=== PATIENT | female | born 1955 | race Caucasian/White ===

== ENCOUNTER → 2016-08-25 | Outpatient (CLI) | payer BC ==
--- NOTE | 2016-08-26 14:33 | DI ---
CT SCAN OF THE NECK WITHOUT IV CONTRAST, 08/25/2016 12:56 PM : Clinical History: Biopsy proven thyroid cancer. Previous Exam: None at this facility. Scans are obtained from below the sternal notch to the petrous pyramids without IV contrast. Sagittal and coronal images are generated. The cervical vertebral bodies are of normal height and size. There is chronic narrowing of the C4-5 a nd C5-6 disc spaces. The remaining cervical disc spaces are of normal height. The unopacified views o f the carotid and vertebral arteries are normal. There are no soft tissue masses on either side. No l ymphadenopathy is identified. The thyroid gland has a normal shape and position. In the center of the left lobe of the thyroid gland, there is a 12 mm low-density lesion that presumably represents the f ocus of carcinoma. Both parotid and submandibular glands are normal. The upper third of each lung READIN. There is a 12 mm low-density lesion in the midportion of the left lobe of the thyroid gland and p resumably this represents the focus of biopsy-proven thyroid cancer. The right lobe and isthmus are n ormal. 2. There is no mass present in the neck or evidence of adenopathy. The visualized portions of both l ungs are normal.
== END ==
LOC: CT 12:49
PROVIDERS: ATTEND Surgery
DX: C73 Malignant neoplasm of thyroid gland (principal)
CPT/HCPCS: 70490

== ENCOUNTER 2016-09-22 06:31 | Observation (INO) | payer BC ==
[~2016-09-22 06:31] MED LIST: LIDOCAINE W/ SODIUM BICARB 0.5 ML SYR ONE; Lactated Ringers 1,000 ML PRIMARY IV ONE
[2016-09-22] MEDS ORDERED: ROCURONIUM 10 MG/1 ML - 5 ML VIAL IVP ONE ×2 (07:07→08:19)
[2016-09-22] MEDS ORDERED: fentaNYL Inj 250 MCG/5 ML VIAL ONE (07:10)
[2016-09-22] MEDS ORDERED: LIDOCAINE MPF 2% - 5 ML (20 MG/1 ML) ONE ×2 (07:10→10:16)
[2016-09-22] MEDS ORDERED: MIDAZOLAM 5 MG/1 ML ONE (07:10)
[2016-09-22] MEDS ORDERED: Lactated Ringers 1,000 ML PRIMARY IV SCH (07:15)
[2016-09-22] MEDS ORDERED: PROMETHAZINE 25 MG/1 ML VIAL IM PRN (07:15)
[2016-09-22] MEDS ORDERED: HYDROmorphone 2 MG/1 ML IVP PRN (07:15)
[2016-09-22] MEDS ORDERED: NORMAL SALINE 10 ML SYRINGE FLUSH IVP PRN ×2 (07:15→11:34)
[2016-09-22] MEDS ORDERED: ceFAZolin Inj 3 GM in Sodium Chloride 0.9% 100 ML IV PRN (07:37)
[2016-09-22] MEDS ORDERED: DEXAMETHASONE SOD PHOSPHATE 4 MG/1 ML VIAL ONE (08:24)
[2016-09-22] MEDS ORDERED: KETAMINE 100 MG/1 ML - 5 ML ONE (08:48)
[2016-09-22] MEDS ORDERED: ONDANSETRON 4 MG/2 ML VIAL ONE (09:32)
[2016-09-22] MEDS ORDERED: SUGAMMADEX SODIUM 200 MG/2 ML VIAL IV ONE (09:59)
--- NOTE | 2016-09-22 10:28 | GEN.OPNOTE ---
Operative Note Surgery Date: 09/22/16 Preoperative Diagnosis: Papillary thyroid cancer. Left lower lobe. Postoperative Diagnosis: Same. Procedure: Total thyroidectomy. Surgeon: Wali Smith MD Sand Cutter: Sameer Rivas MD Anesthesia Provider: Ervin Rincon CRNA Anesthesia Type: General Estimated Blood Loss (mL): 75 Fluids: 1000 mL of crystalloid. 3 g of IV Ancef. Pathology: Specimen to pathology. Indications: Fine-needle aspiration biopsy showing papillary thyroid cancer. No evidence of extrathyroidal disease. Findings: Left lower pole thyroid nodule. No other abnormalities identified. Complications: None. Operative Summary: The patient was taken to the operating suite and placed on the operating table in the supine position. Following the induction of general anesthetic a shoulder roll was placed and the neck was extended. A standard curvilinear incision was made through the skin. The subcutaneous tissue and platysma muscle layer were incised with electrocautery. Sub-platysmal flaps were developed superiorly and inferiorly to gain adequate exposure. The strap muscles were in the midline and dissected off the thyroid gland. There is no involvement of the tumor on the left to the strap muscles. Identical procedures were done on each side. 4 parathyroid glands were identified and preserved. The recurrent laryngeal nerves were identified and preserved throughout the course of the procedure. Following retraction of the strap muscles the left thyroid lobe was elevated out of the thyroid bed. The middle thyroid vein was isolated, tied proximally and distally and divided. Attention was turned to the superior pole. It was isolated. It was tied proximally and distally with 2-0 silk and a clip was placed proximally. The superior pole was taken down sharply. Blunt and sharp dissection were used to free up the thyroid lobe. Small vessels were tied or clipped as appropriate. Once I had most of the lobe freed up attention was turned to finding the recurrent laryngeal nerve. This was easily accomplished. The nerve was followed up to its insertion in the tracheoesophageal groove. The inferior pole was taken down by isolating and ligating the vessels proximally and distally. Again care was taken to identify parathyroid glands and they were preserved. Once we were past the insertion of the recurrent laryngeal nerve the thyroid was teased off of the trachea both bluntly and with electrocautery. The left lobe including the isthmus was transected with electrocautery and removed. Attention was turned to the right thyroid lobe. It was treated in an identical fashion. First the middle thyroid vein was ligated and divided. The superior pole was taken down as before. The recurrent laryngeal nerve was identified and preserved. The inferior pole was taken down. The thyroid was peeled off the trachea with electrocautery and removed. Final irrigation and suctioning were performed. Hemostasis was assured. Parathyroid glands were again identified as were the recurrent laryngeal nerves. The strap muscles were reapproximated in the midline with running 2-0 Vicryl. The platysma muscle layer was closed with running 2-0 Vicryl. The skin was closed with running subcuticular 4-0 Prolene followed by Mastisol, Steri-Strips , and an appropriate dressing. Patient tolerated the entire procedure well without complication. She was taken to the recovery room in stable condition. All counts were correct.
[2016-09-22] MEDS: fentaNYL Inj 100 MCG/2 ML VIAL IVP PRN ×2 (10:49→10:52)
[2016-09-22] MEDS ORDERED: ONDANSETRON 4 MG/2 ML VIAL IVP PRN (11:34)
[2016-09-22] MEDS ORDERED: MORPHINE SULFATE 2 MG/1 ML IVP PRN (11:34)
[2016-09-22] MEDS: D5-LR + 20mEq KCL 1,000 ML PRIMARY IV SCH ×2 (12:10→20:31)
--- NOTE | 2016-09-22 15:32 | PDOC(PROG) ---
Date and Time of Service: 09/22/2016 3:30 PM Interval History: The patient is awake, alert, and oriented. She is having some neck soreness but overall doing well. Her voice feels and sounds normal. No specific complaints. No perioral numbness or tingling. Objective : Data - Vital Signs Vital Signs and I&O: Vital Signs - Last Taken Temperature 97.4 F 09/22/16 13:30 Pulse Rate 51 L 09/22/16 13:30 Respiratory Rate 20 09/22/16 13:30 Blood Pressure 151/64 09/22/16 13:30 Pulse Ox 98 09/22/16 13:30 Intake and Output (24hr x 4 totals) 09/20/16 09/21/16 09/22/16 09/23/16 05:59 05:59 05:59 05:59 Intake Total 2000 Output Total 75 Balance 1925 Objective : Exam - General General Appearance: No Acute Distress, Cooperative - Neck Additional Neck Exam Details: Dressing is clean and dry and intact. Neck is soft. No significant swelling. Full range of motion. Assessment and Plan - Patient Problems (1) Papillary carcinoma of thyroid Current Visit: Yes Status: Acute Priority: Medium Comment: Total thyroidectomy performed today. (2) Status post total thyroidectomy Current Visit: Yes Status: Acute Comment: Status post total thyroidectomy. Stable. Doing well. Continue postoperative care. Calcium pending at 5 PM.
[2016-09-22] MEDS: HYDROcodone-APAP 5 MG -325 MG TABLET PO PRN ×2 (15:50→19:57)
[2016-09-22] MEDS: PANTOPRAZOLE 40 MG TABLET PO SCH (20:31)
[2016-09-23] MEDS: D5-LR + 20mEq KCL 1,000 ML PRIMARY IV SCH (04:21)
[2016-09-23] MEDS: HYDROcodone-APAP 5 MG -325 MG TABLET PO PRN (04:21)
[2016-09-23 06:49] LABS: BASOPHILS # (AUTO) 0.02 10*3/UL; BASOPHILS % (AUTO) 0.2 % (0-1); EOSINOPHILS % (AUTO) 0 % (0-8); HEMATOCRIT 35.5 % (37.0-47.0); HEMOGLOBIN 11.3 g/dL (12.0-16.0); IMM GRAN % (AUTO) 0.2 % (0-5); IMM GRAN# (AUTO) 0.02 10*3/UL; LYMPHOCYTES # (AUTO) 0.97 10*3/uL; LYMPHOCYTES % (AUTO) 10.1 % (10-50); MEAN CORPUSCULAR HEMOGLOBIN 27.8 PG (27-31); MEAN CORPUSCULAR HGB CONC 31.8 g/dL (33-37); MEAN PLATELET VOLUME 11.1 FL (7.4-12.2); MONOCYTES # (AUTO) 0.71 10*3/UL (0.3-0.8); MONOCYTES % (AUTO) 7.4 % (5-15); NEUTROPHILS # (AUTO) 7.86 10*3/UL; NEUTROPHILS % (AUTO) 82.1 % (50-80); RED BLOOD COUNT 4.07 10^6/uL (4.20-5.40); WHITE BLOOD COUNT 9.58 10^3/uL (4.8-10.8)
[2016-09-23 06:50] LABS: PLATELET MORPHOLOGY COMMENT NORMAL MORPHOLOGY (NORM)
[2016-09-23 07:07] LABS: ASPARTATE AMINO TRANSFERASE 22 IU/L (8-39); BILIRUBIN,TOTAL 0.5 mg/dL (0.3-1.2); BLOOD UREA NITROGEN 12 mg/dL (7-22); CHLORIDE 106 meq/L (98-112); CREATININE 0.5 mg/dL (0.50-1.20); EST GLOMERULAR FILTRATION > 60 (>60 ml/min/1.73m(2)); GLUCOSE 130 mg/dL (78-110); MAGNESIUM 1.8 mg/dL (1.6-2.4); PHOSPHORUS 4.5 mg/dl (2.4-4.3); POTASSIUM 4.2 meq/L (3.8-5.2); SODIUM 139 meq/L (135-145); TOTAL PROTEIN 5.7 g/dL (6.1-8.0)
[2016-09-23 07:32] VITALS: RESP 18; TEMP 98.3
[2016-09-23] MEDS: PANTOPRAZOLE 40 MG TABLET PO SCH (09:00)
[2016-09-23] MEDS ORDERED: Influenza 16-17 Vaccine(4yrs+) 45 MCG/0.5 ML SYRINGE IM ONE (09:00)
--- NOTE | 2016-09-23 09:04 | PDOC(PROG) ---
Subjective Post Op Day: 1 Pain Management: PO Gonsalves Catheter: No Flatus: Yes Diet: Regular Ambulating: Yes Date and Time of Service: 09/23/2016 9 AM Interval History: Doing very well. No complaints or problems. Up and ambulating. Tolerating a regular diet. Passing gas. Has not had a bowel movement but didn't eat much yesterday. Voiding freely. No perioral numbness or tingling. Preoperative calcium was 9.2. Last evening it was 8.2. This morning is 8.0. No difficulty swallowing or breathing. Has mild pain in her neck. Objective : Data - Labs CBC and BMP: 09/23/16 05:53 09/23/16 05:53 Labs - Last 24 Hours: Laboratory Results 09/22/16 09/23/16 Range/Units 17:09 05:53 WBC 9.58 (4.8-10.8) 10^3/uL RBC 4.07 L (4.20-5.40) 10^6/uL Hgb 11.3 L (12.0-16.0) g/dL Hct 35.5 L (37.0-47.0) % MCV 87.2 (81-99) FL MCH 27.8 (27-31) PG MCHC 31.8 L (33-37) g/dL RDW Std Deviation 50.7 H (39-50) fL RDW Coeff of Eliud 16.0 H (11.5-14.5) % Plt Count 224 (140-350) 10*3/uL MPV 11.1 (7.4-12.2) FL Immature Gran % (Auto) 0.2 (0-5) % Neut % (Auto) 82.1 H (50-80) % Lymph % (Auto) 10.1 (10-50) % [place] % (Auto) 7.4 (5-15) % Eos % (Auto) 0 (0-8) % Baso % (Auto) 0.2 (0-1) % Immature Gran # (Auto) 0.02 10*3/UL Neut # (Auto) 7.86 10*3/UL Lymph # (Auto) 0.97 10*3/uL [place] # (Auto) 0.71 (0.3-0.8) 10*3/UL Eos # (Auto) 0 10*3/UL Baso # (Auto) 0.02 10*3/UL WBC Morphology Comment Normal morphology (NORM) Plt Morphology Comment Normal morphology (NORM) RBC Morph Comment Normal morphology (NORM) Sodium 139 (135-145) meq/L Potassium 4.2 (3.8-5.2) meq/L Chloride 106 (98-112) meq/L Carbon Dioxide 26 (23-33) meq/L Anion Gap 7 (5-20) BUN 12 (7-22) mg/dL Creatinine 0.5 (0.50-1.20) mg/dL Estimated GFR > 60 (>60 ml/min/1.73m(2)) BUN/Creatinine Ratio 24.00 H (6-20) Glucose 130 H (78-110) mg/dL Calculated Osmolality 289.0 (267-292) mOsm/kg Calcium 8.2 L 8.0 L (8.7-10.7) mg/dL Phosphorus 4.5 H (2.4-4.3) mg/dl Magnesium 1.8 (1.6-2.4) mg/dL Total Bilirubin 0.5 (0.3-1.2) mg/dL AST 22 (8-39) IU/L ALT 31 (9-52) IU/L Alkaline Phosphatase 72 (38-126) IU/L Total Protein 5.7 L (6.1-8.0) g/dL Albumin 3.2 L (3.5-4.8) g/dL Globulin 2.5 (2.50-4.10) g/dL Albumin/Globulin Ratio 1.20 L (1.3-2.0) mg/g - Vital Signs Vital Signs and I&O: Vital Signs - Last Taken Temperature 98.3 F 09/23/16 07:30 Pulse Rate 55 L 09/23/16 07:30 Respiratory Rate 18 09/23/16 07:30 Blood Pressure 134/64 09/23/16 07:30 Pulse Ox 96 09/23/16 07:30 Intake and Output (24hr x 4 totals) 09/21/16 09/22/16 09/23/16 09/24/16 05:59 05:59 05:59 05:59 Intake Total 5938 412 Output Total 8888 250 Balance 4113 162 Objective : Exam - General General Appearance: No Acute Distress, Cooperative - Neck Additional Neck Exam Details: Dressing clean and dry and intact and removed. Steri-Strips intact. Minimal swelling. No significant bruising. Full range of motion. - Respiratory Respiratory Exam: Clear to Auscultation - Bilaterally - Cardiovascular Cardiovascular Exam: RRR - GI/Abdominal GI/Abdominal Exam: Normal Bowel Sounds, Soft Assessment and Plan - Patient Problems (1) Papillary carcinoma of thyroid Current Visit: Yes Status: Acute Priority: Medium Comment: Status post total thyroidectomy. (2) Status post total thyroidectomy Current Visit: Yes Status: Acute Comment: Surgically stable. Actually doing very well. Calcium at appropriate level. The be discharged home for outpatient follow-up.
== END 2016-09-23 10:00 | disposition home or self-care (01) ==
LOC: OPS 06:31 → INTOOBSV 06:31 → MED/SURG 11:20
PROVIDERS: ADMIT Surgery; ATTEND Surgery
DX: C73 Malignant neoplasm of thyroid gland (principal)
CPT/HCPCS: 36415 ×2; 60240; 80053; 82310; 83735; 84100; 85025; 94761 ×2; J2704; J3010; 90656; J0690; J1100; J2001; J2250; J2270; J2405; J7050; J7120

== ENCOUNTER → 2016-11-22 | Outpatient (CLI) | payer BC | LOC: MOB LAB 10:49 | PROVIDERS: ATTEND Internal Medicine | DX: C73 Malignant neoplasm of thyroid gland (principal); Z98.890 Other specified postprocedural states | CPT/HCPCS: 36415; 84439; 84443 ==

== ENCOUNTER 2016-12-29 01:07 | Emergency (ER) | payer BC ==
[2016-12-29 01:26] VITALS: RESP 18; TEMP 97.4
[2016-12-29] MEDS ORDERED: HYDROcodone-APAP 5 MG -325 MG TABLET PO ONE (01:28)
--- NOTE | 2016-12-29 01:33 | PDOC ---
Lower Extremity Injury HPI - General Chief Complaint: Lower Extremity Problem/Injury Stated Complaint: LEFT KNEE INJURY Date Seen by Provider: 12/29/16 Time Seen by Provider: 01:28 Source: POSITIVE: Patient Exam Limitations: POSITIVE: No limitations Nurse's Notes Reviewed & Considered: Yes - History of Present Illness Initial Comments: This very pleasant lady was going up her stairs tonight at approximately 2100 hrs. when she fell forward hitting her left knee. She heard a pop, and had pain in her knee predominantly in the posterior portion. She's had decreased range of motion and decreased ability to ambulate because of pain. She comes in now because she was unable to sleep. The pain continued to throb. She took a hydrocodone left over from thyroid surgery at around 2100 hrs. that his been insufficient to alleviate her pain enough to sleep. She denies any other injury , specifically she did not hit her head, no loss of consciousness, no chest injury, or upper extremity injury. Have you received a tetanus shot in the past 10 years?: Unknown Body Location Affected: REPORTS: Lower Extremity (L) Timing: REPORTS: Abrupt Duration: 4-6 hours Severity: Moderate Quality: REPORTS: "Pain", Stabbing, Throbbing Location at Time of Onset: REPORTS: Home Context of Injury: REPORTS: Fall Location of Injury: REPORTS: Knee (L) Modifying Factors: improves with: Movement, Nothing Relieves Associated Symptoms: REPORTS: Popping Sensation Any Prior Injuries Related to Current Complaint?: No - Patient Home Medications Home Medications: Home Medications Famotidine [Pepcid] 1 tab-cap PO BID tab 06/21/16 Lamont-3 Fatty Acids/Fish Oil [Fish Oil 1,000 Mg Capsule] 1 cap PO DAILY cap Iron,Carbonyl [Iron] 45 mg PO DAILY 09/22/16 Levothyroxine Sodium 1 tab PO DAILY tab 10/21/16 Calcium Carbonate [Calcium] 1 tab PO TID #0 tab NS 11/22/16 Cholecalciferol [Vitamin D3] 1 cap PO BID #0 cap 11/22/16 - Patient Allergies Allergies/Adverse Reactions: Allergies Allergy/AdvReac Type Severity Reaction Status Date / Time azithromycin [From Zithromax] Allergy Intermediate ITCHING Verified 12/29/16 01: 14 Past Medical History - heen HEENT History: Denies History Cardiovascular History: Denies History Respiratory History: Denies History Gastrointestinal History: GERD, Other (please comment) Additional Gastrointestinal History: GASTRIC BYPASS Genitourinary History: Denies History Endocrine History: Other (please comment) Additional Endocrine History: HX OF D.M. TYPE 2 PRIOR TO GASTRIC BYPASS. Pt denies at this time. Musculoskeletal History: Joint Pain, Other (please comment) Prosthesis or Implant: No Additional Musculoskeletal History: left wrist fracture Neurological History: Denies History Blood Disorders: Anemia Psychiatric History: Denies History History of Sexually Transmitted Diseases: No Cancer History: Other (please comment) Cancer Treatment / Date(s) of Treatment: SURG In Past Year Been Physically Harmed or Verbally Threatened: No History of MDRO: No History of Other Communicable Diseases: No Tobacco Use: Never Smoker Alcohol Use: None Substance Use Type: None Previous Surgical History: Yes Type / Date of Surgery: APPY. MARIELA. COLONOSCOPY. TONSILLECTOMY. FINE NEEDLE ASP LEFT THYROID. Thyroidectomy. TUBAL LIGATION. HYSTERECTOMY. GASTRIC BYPASS. X3 RECTAL FISTALOTOMY Anesthesia Reactions: No Malignant Hyperthermia: No Significant Family History: No pertinent family hx ROS - Limitations ROS Limitations: No Limitations Constitution: REPORTS: Denies Symptoms Cardiovascular: REPORTS: Denies Cardiac Symptoms Respiratory: REPORTS: Denies Resp Symptoms Neurological: REPORTS: Denies Neuro Symptoms Gastrointestinal: REPORTS: Denies GI Symptoms Endocrine: REPORTS: Denies Symptoms Musculoskeletal: REPORTS: Joint Pain Genitourinary: REPORTS: Denies Symptoms Eyes: REPORTS: Denies Symptoms ENT: REPORTS: Denies Symptoms Skin: REPORTS: Denies Skin Symptoms Lympathic: REPORTS: Denies Lympathic Symptoms Immunologic: POSITIVE: Denies Symptoms Psychiatric: POSITIVE: Denies Psych Symptoms Lower Ext Complaint Exam - General Appearance General Appearance: POSITIVE: Alert, Cooperative, No Acute Distress, No Evidence of Trauma - Extremities Lower Extremity: POSITIVE: Normal Color, Normal Temperature, Skin Intact, No Joint Swelling, No Evidence of Ischemia, Soft Tissue Tenderness, Bony Tenderness Lower Extremity Ligament: POSITIVE: Pain on Lateral Stress Gait: POSITIVE: Limited by Pain Neurovascular/Tendon: POSITIVE: Sensation Normal, Motor Normal, No Vascular Compromise Skin: POSITIVE: Warm, Dry - HEENT HEENT: POSITIVE: Head Inspection Nml, Eyes Inspection Nml, Ears Inspection Nml, Nose Inspection Nml, PERRL, EOMI - Neck / Back Neck/Back: POSITIVE: Normal Inspection, Non-Tender, Painless ROM - Respiratory / CVS Respiratory / CVS: POSITIVE: Chest Non Tender, No Respiratory Distress Peripheral Pulses: Dorsalis-pedis (R): 2+ - Abdomen Abdomen: Soft: (All Quadrants), Normal Bowel Sounds: (All Quadrants), Denies Tenderness: (All Quadrants) Lower Ext Complaint Progress - Results Reviewed by me Xrays/CTs/US Reviewed by me: Yes Discussed with Radiologist: No - Patient's Progress Pain Medication Addressed: POSITIVE: Yes Re-Examine Time:: 02:11 Status: POSITIVE: Improved MDM / ED Course: Patient evaluated, radiographic examination obtained, 2 Dozier tabs administered. Findings: My review of the L knee xray shows no acute osseous abnormality. Assessment: Knee pain, status post fall. Plan: D/C home on crutches, Dozier prescribed. Ice, elevation, and bear weight as tolerated. Followup with PCP or ER if no improvement in 7-10 days. - Consult Counseled: POSITIVE: Patient, Family, RE: Radiology Results, RE: DX, RE: Need for F/U Patient Care Time - Estimated PCT Patient Care Time (In Minutes): 20 Vital Signs - Recent Vital Signs Vital Signs: Vital Signs (Last 8 hours) Temp Pulse Resp BP Pulse Ox 12/29/16 01:23 97.4 F 54 L 18 135/85 96 - VS Reviewed Vital Signs Reviewed: Yes Discharge Clinical Impression: Injury of knee Discharge Disposition: Discharged to Home Condition: Stable Patient Instructions Given at Discharge: Knee Pain (ED)
--- NOTE | 2016-12-29 08:32 | DI ---
LEFT KNEE, 12/29/2016 1:28 AM: Clinical History: Injury. The patient fell. Knee pain. Previous Exam: None at this facility. 3 views are submitted. There is no acute soft tissue, osseous, or joint abnormality. There is narrowi ng of the medial compartment consistent with degenerative arthritic disease. Readin. No acute fracture or dislocation is noted. 2. Degenerative arthritic changes of the medial compartment.
== END 2016-12-29 02:26 | disposition home or self-care (01) ==
LOC: ER 01:07
DX: M25.562 Pain in left knee (principal); W10.8XXA Fall (on) (from) other stairs and steps, initial encounter
CPT/HCPCS: 73562; 99282

== ENCOUNTER → 2017-03-01 | Outpatient (CLI) | payer BC ==
[2017-03-01 07:39] LABS: BLOOD UREA NITROGEN 14 mg/dL (7-22); BUN/CREATININE RATIO 23.33 (6-20); CALCIUM 8.8 mg/dL (8.7-10.7); EST GLOMERULAR FILTRATION > 60 (>60 ml/min/1.73m(2)); SERUM ALBUMIN 4.1 g/dL (3.5-4.8)
[2017-03-01 09:27] LABS: FREE T4 (FREE THYROXINE) 1.49 ng/dL (0.93-1.71)
[2017-03-01 10:20] LABS: CHOL/HDL RATIO 2.96 RATIO (0-4.0); PHOSPHORUS 4.4 mg/dl (2.4-4.3)
[2017-03-01 10:50] LABS: BILIRUBIN,URINE NEGATIVE (NEG); CLARITY,URINE CLEAR (CLEAR); COLOR,URINE YELLOW; GLUCOSE, URINE (UA) NEGATIVE (NEG); NITRATE,URINE NEGATIVE (NEG); OCCULT BLOOD,URINE NEGATIVE (NEG); PH,URINE 7.5 (5.0-8.5); PROTEIN,URINE NEGATIVE (NEG)
[2017-03-01 11:08] LABS: RED BLOOD COUNT 4.38 10^6/uL (4.20-5.40)
[2017-03-01 11:09] LABS: HEMATOCRIT 40.2 % (37.0-47.0); HEMOGLOBIN 13.1 g/dL (12.0-16.0); MEAN CORPUSCULAR HEMOGLOBIN 29.9 PG (27-31); MEAN CORPUSCULAR HGB CONC 32.6 g/dL (33-37); MEAN CORPUSCULAR VOLUME 91.8 FL (81-99); MEAN PLATELET VOLUME 9.4 FL (7.4-12.2); PLATELET MORPHOLOGY COMMENT NORMAL MORPHOLOGY (NORM); RBC MORPHOLOGY COMMENT NORMAL MORPHOLOGY (NORM); WBC MORPHOLOGY COMMENT NORMAL MORPHOLOGY (NORM)
[2017-03-01 11:10] LABS: BAND NEUTROPHILS % 0 % (0-10); BASOPHILS % (MANUAL) 3 % (0-1); EOSINOPHILS % (MANUAL) 4 % (0-8); LYMPHOCYTES % (MANUAL) 39 % (10-50); MONOCYTES % (MANUAL) 7 % (0-12); NEUTROPHILS % (MANUAL) 47 % (50-80)
[2017-03-01 11:13] LABS: RBC,URINE 0 /hpf; SQUAMOUS EPITHELIAL CELL,UR FEW; URINE SAMPLE TYPE CLEAN CATCH URINE; WBC,URINE 0-1
--- NOTE | 2017-03-01 11:22 | DI ---
CT SOFT TISSUE NECK W/WO CNT,03/01/2017 7:22 AM: Clinical History: Neck tenderness. Previous Exam: August 25, 2016 Findings: Multiple helically acquired CT images are obtained through the neck both before and after intravenous contrast. Postsurgical changes are noted within the neck. The lungs are clear. Skeletal structures are unremarkable. There are a few small lymph nodes within the neck. Mild degenerative changes of spine are seen. The carotids and vertebral arteries are within normal li mits. Intraorbital structures and paranasal sinuses are unremarkable. The base of the skull is unremarkable. There is mild reversal of the normal lordotic curvature of the cervical spine. There are no fluid collections identified. The parapharyngeal fat is normal and symmetric. The pharyngeal mucosal space is intact. Impression: 1. Mild degenerative changes of the cervical spine. 2. No evidence of abscess.
== END ==
LOC: CT 07:17
PROVIDERS: ATTEND Internal Medicine
DX: E89.0 Postprocedural hypothyroidism (principal); M54.2 Cervicalgia; M47.812 Spondylosis without myelopathy or radiculopathy, cervical region; C73 Malignant neoplasm of thyroid gland; R51 Headache; E66.01 Morbid (severe) obesity due to excess calories; D64.9 Anemia, unspecified; R03.0 Elevated blood-pressure reading, without diagnosis of hypertension; Z98.84 Bariatric surgery status; Z86.39 Personal history of other endocrine, nutritional and metabolic disease; Z98.890 Other specified postprocedural states
CPT/HCPCS: 36415; 70492; 80053; 80061; 81001; 84100; 84439; 84443; 85007; 85652

== ENCOUNTER → 2017-03-18 | Outpatient (CLI) | payer BC ==
--- NOTE | 2017-03-21 10:04 | DI ---
Clinical history: Left knee pain Comparison December 29, 2016 Findings: There is osteophyte formation around all articular compartments of the knee. There is moderate medial compartment narrowing demonstrated on the weightbearing image. There is no fracture There are no destructive changes There is no joint effusion There've been no significant changes as compared with study of December 29, 2016 Impression Degenerative changes predominate in the medial compartment.
== END ==
LOC: ORTHO 12:13
PROVIDERS: ATTEND Orthopaedic Surgery
DX: M25.562 Pain in left knee (principal); S80.02XA Contusion of left knee, initial encounter; S83.8X2A Sprain of other specified parts of left knee, initial encounter; W18.09XA Striking against other object with subsequent fall, initial encounter; Y93.89 Activity, other specified; Y92.89 Other specified places as the place of occurrence of the external cause; Y99.0 Civilian activity done for income or pay
CPT/HCPCS: 73564